=== PATIENT | female | born 1960 | race Two or more races ===

== ENCOUNTER 2019-12-29 11:05 | Inpatient (IN) ==
[~2019-12-29 11:05] MED LIST: Dexamethasone IV 4 MG/ML VIAL 1 ml VIAL IV SLOW PU ONE; Famotidine IV 10 MG/ML 2 ml VIAL (20 mg) IV ONE; Lactated Ringers 1000 ml BAG 1,000 ML IV SCH; Lidocaine 2% PF 5 ML VIAL ONE; Metoclopramide 5 MG/ML VIAL (10 mg) ONE; Midazolam 2 mg/2 ml VIAL 1 mg/ml 2 ml VIAL (2 mg) ONE; Ondansetron 4 mg VIAL 2 MG/ML 2 ml VIAL ONE; Propofol 10 MG/ML 20 ML BTL ONE; Rocuronium 50 mg VIAL 10 mg/ml 5 ml VIAL (50 mg) ONE; Succinylcholine 200 mg VIAL 20 mg/ml 10 ml VIAL (200 mg) ONE; fentaNYL 100 mcg/2 ml 50 MCG/ML VIAL ONE
[2019-12-29] MEDS ORDERED: Famotidine IV 10 MG/ML 2 ml VIAL (20 mg) ONE (11:29)
[2019-12-29] MEDS ORDERED: Heparin 5000 UNITS/ML VIAL(*) 1 ml vial ONE (11:29)
[2019-12-29] MEDS ORDERED: ceFAZolin 2 GM PREMIX in ORs 2 GM/50 ML BAG ONE (11:29)
[2019-12-29] MEDS ORDERED: Dexamethasone IV 4 MG/ML VIAL 1 ml VIAL ONE ×2 (11:29→17:22)
[2019-12-29] MEDS ORDERED: fentaNYL 100 mcg/2 ml 50 MCG/ML VIAL ONE ×2 (11:45→16:58)
[2019-12-29] MEDS ORDERED: Midazolam 5 mg/5 ml VIAL 1 mg/ml 5 ml VIAL (5 mg) ONE (16:25)
[2019-12-29] MEDS ORDERED: Bupivacaine 0.25% EPI 200,000 30 ML SDV ONE (16:36)
[2019-12-29] MEDS ORDERED: Propofol 10 MG/ML 20 ML BTL ONE (17:22)
[2019-12-29] MEDS ORDERED: Lidocaine 2% PF 5 ML VIAL ONE (17:22)
[2019-12-29] MEDS ORDERED: Ondansetron 4 mg VIAL 2 MG/ML 2 ml VIAL ONE (17:22)
[2019-12-29] MEDS ORDERED: DiMENhydriNATE IV 50 mg/ml 1 ml VIAL ONE (17:22)
[2019-12-29] MEDS ORDERED: Succinylcholine 200 mg VIAL 20 mg/ml 10 ml VIAL (200 mg) ONE (17:22)
[2019-12-29] MEDS ORDERED: HYDROmorphone 1 MG/1 ML SYRINGE ONE (17:26)
[2019-12-29] MEDS ORDERED: metroNIDAZOLE IV 500 MG/100ML 500 MG/100 ML BAG ONE (17:31)
[2019-12-29] MEDS ORDERED: DiMENhydriNATE IV 50 mg/ml 1 ml VIAL IV PUSH PRN (18:29)
[2019-12-29] MEDS ORDERED: Acetaminophen IV 1 GM/100ML 1,000 MG/100 ML VIAL IVPB ONE (18:29)
[2019-12-29] MEDS ORDERED: Naloxone 0.4 mg VIAL 0.4 mg/ml 1 ml VIAL IV PRN (18:29)
[2019-12-29] MEDS ORDERED: HYDROmorphone 1 MG/1 ML SYRINGE IV PRN (18:29)
[2019-12-29] MEDS ORDERED: metroNIDAZOLE IV 500 MG/100ML 500 MG/100 ML BAG IVPB ONE (18:33)
[2019-12-29] MEDS ORDERED: Acetaminophen IV 1 GM/100ML 100 ML ONE (19:32)
[2019-12-29] MEDS: Lactated Ringers 1000 ml BAG 1,000 ML IV SCH (21:05)
[2019-12-29] MEDS: Famotidine IV 10 MG/ML 2 ml VIAL (20 mg) IV SLOW PU SCH (21:19)
[2019-12-30] MEDS: ceFAZolin 2 GM PREMIX in ORs 2 GM/50 ML BAG IVPB SCH ×2 (00:42→09:33)
[2019-12-30] MEDS: metroNIDAZOLE IV 500 MG/100ML 500 MG/100 ML BAG IVPB SCH ×3 (01:35→17:40)
[2019-12-30 06:49] LABS: ABS Lymphocytes 1.3 10^3/ul (1.0-4.8); ABS Monocytes 0.5 10^3/ul (0-0.8); Hematocrit 32 % (35-47); Lymphocyte % 6.5 %; Mean Corpuscular HGB Conc 34 g/dL (31-36); Mean Corpuscular Hemoglobin 28 pg (27-31); Mean Corpuscular Volume 83 fL (80-97); Mean Platelet Volume 6.1 fL (7.4-10.4); Platelet Count 509 10^3/uL (150-450); Red Blood Count 3.88 10^6 /uL (3.70-4.87); Red Cell Distribution Width 13 % (10-15); White Blood Count 19.9 10^3/uL (3.5-10.8)
[2019-12-30 07:05] LABS: BUN/Creatinine Ratio 20.4 (8-20); Calcium 8.8 mg/dL (8.6-10.3); EGFR African American 138.9 (>60); EGFR Non-African American 114.8 (>60); Potassium 3.9 mmol/L (3.5-5.0)
[2019-12-30] MEDS: Famotidine IV 10 MG/ML 2 ml VIAL (20 mg) IV SLOW PU SCH ×2 (07:57→22:14)
[2019-12-30] MEDS: Lactated Ringers 1000 ml BAG 1,000 ML IV SCH ×2 (08:00→17:08)
[2019-12-30 09:15] LABS: C Reactive Protein 155.7 mg/L (<8.01)
[2019-12-30] MEDS: cefTRIAXone 1 gm/50 mL NS BAG 1 GM/50 ML BAG IVPB SCH (16:59)
[2019-12-30] MEDS: HYDROmorphone 1 MG/1 ML SYRINGE IV SLOW PU PRN (22:09)
[2019-12-31] MEDS: metroNIDAZOLE IV 500 MG/100ML 500 MG/100 ML BAG IVPB SCH ×3 (02:04→17:20)
[2019-12-31] MEDS: Lactated Ringers 1000 ml BAG 1,000 ML IV SCH ×3 (03:49→22:11)
[2019-12-31] MEDS ORDERED: Lactated Ringers 1000 ml BAG 500 ML IV ONE (05:05)
[2019-12-31 05:28] LABS: ABS Lymphocytes 1.1 10^3/ul (1.0-4.8); ABS Monocytes 0.5 10^3/ul (0-0.8); Eosinophil % 0.1 %; Hematocrit 34 % (35-47); Hemoglobin 11.3 g/dL (12.0-16.0); Lymphocyte % 7.1 %; Mean Corpuscular HGB Conc 33 g/dL (31-36); Mean Corpuscular Hemoglobin 28 pg (27-31); Mean Corpuscular Volume 84 fL (80-97); Mean Platelet Volume 6.2 fL (7.4-10.4); Platelet Count 602 10^3/uL (150-450); Red Blood Count 4.07 10^6 /uL (3.70-4.87); Red Cell Distribution Width 13 % (10-15)
[2019-12-31 06:00] LABS: BUN/Creatinine Ratio 20.7 (8-20); Calcium 8.9 mg/dL (8.6-10.3); EGFR African American 127.9 (>60); EGFR Non-African American 105.7 (>60); Potassium 3.9 mmol/L (3.5-5.0)
[2019-12-31] MEDS: Famotidine IV 10 MG/ML 2 ml VIAL (20 mg) IV SLOW PU SCH ×2 (10:10→20:53)
[2019-12-31] MEDS: cefTRIAXone 1 gm/50 mL NS BAG 1 GM/50 ML BAG IVPB SCH (16:38)
[2020-01-01] MEDS: metroNIDAZOLE IV 500 MG/100ML 500 MG/100 ML BAG IVPB SCH ×3 (01:05→17:45)
[2020-01-01] MEDS: Lactated Ringers 1000 ml BAG 1,000 ML IV SCH ×2 (07:27→16:42)
[2020-01-01] MEDS: Famotidine IV 10 MG/ML 2 ml VIAL (20 mg) IV SLOW PU SCH ×2 (10:04→21:06)
[2020-01-01] MEDS: cefTRIAXone 1 gm/50 mL NS BAG 1 GM/50 ML BAG IVPB SCH (16:43)
[2020-01-01] MEDS ORDERED: Dextrose 50% Syringe 50 ml 25 GM/50 ML SYRINGE IV PUSH PRN (16:51)
[2020-01-01] MEDS: Insulin LISPRO 100 units/ml(*) SUBCUT PRN (17:48)
[2020-01-02] MEDS: metroNIDAZOLE IV 500 MG/100ML 500 MG/100 ML BAG IVPB SCH ×3 (01:30→18:04)
[2020-01-02] MEDS: Lactated Ringers 1000 ml BAG 1,000 ML IV SCH ×3 (03:44→22:59)
[2020-01-02 05:31] LABS: ABS Lymphocytes 1.2 10^3/ul (1.0-4.8); ABS Monocytes 0.6 10^3/ul (0-0.8); Eosinophil % 0.1 %; Hematocrit 29 % (35-47); Hemoglobin 9.5 g/dL (12.0-16.0); Lymphocyte % 8.7 %; Mean Corpuscular HGB Conc 33 g/dL (31-36); Mean Corpuscular Hemoglobin 28 pg (27-31); Mean Corpuscular Volume 84 fL (80-97); Mean Platelet Volume 6.2 fL (7.4-10.4); Platelet Count 413 10^3/uL (150-450); Red Blood Count 3.45 10^6 /uL (3.70-4.87); Red Cell Distribution Width 13 % (10-15); White Blood Count 13.8 10^3/uL (3.5-10.8)
[2020-01-02 05:48] LABS: BUN/Creatinine Ratio 19.6 (8-20); EGFR African American 167.1 (>60); EGFR Non-African American 138.1 (>60); Potassium 3.3 mmol/L (3.5-5.0)
[2020-01-02] MEDS: Famotidine IV 10 MG/ML 2 ml VIAL (20 mg) IV SLOW PU SCH ×2 (10:38→20:51)
[2020-01-02] MEDS: Insulin LISPRO 100 units/ml(*) SUBCUT PRN ×2 (12:56→19:04)
[2020-01-02] MEDS: cefTRIAXone 1 gm/50 mL NS BAG 1 GM/50 ML BAG IVPB SCH (17:12)
[2020-01-02] MEDS: HYDROmorphone 0.5 MG/0.5 ML SYRINGE IV SLOW PU PRN (21:19)
[2020-01-03] MEDS: metroNIDAZOLE IV 500 MG/100ML 500 MG/100 ML BAG IVPB SCH ×3 (01:47→17:49)
[2020-01-03] MEDS: Insulin LISPRO 100 units/ml(*) SUBCUT PRN ×3 (06:23→18:12)
[2020-01-03] MEDS: Lactated Ringers 1000 ml BAG 1,000 ML IV SCH ×2 (08:09→17:49)
[2020-01-03] MEDS: Famotidine IV 10 MG/ML 2 ml VIAL (20 mg) IV SLOW PU SCH ×2 (09:13→21:53)
[2020-01-03] MEDS: cefTRIAXone 1 gm/50 mL NS BAG 1 GM/50 ML BAG IVPB SCH (17:04)
[2020-01-03] MEDS: HYDROmorphone 1 MG/1 ML SYRINGE IV SLOW PU PRN (19:43)
[2020-01-04] MEDS: Insulin LISPRO 100 units/ml(*) SUBCUT PRN (00:39)
[2020-01-04] MEDS: HYDROmorphone 0.5 MG/0.5 ML SYRINGE IV SLOW PU PRN (00:40)
[2020-01-04] MEDS: metroNIDAZOLE IV 500 MG/100ML 500 MG/100 ML BAG IVPB SCH ×3 (00:52→19:20)
[2020-01-04] MEDS: Lactated Ringers 1000 ml BAG 1,000 ML IV SCH ×3 (03:52→20:00)
[2020-01-04] MEDS ORDERED: NS 0.9% 1000 ml BAG 1,000 ML IV ONE ×2 (04:15→07:42)
[2020-01-04 05:08] LABS: ABS Basophils 0.1 10^3/ul (0-0.2); ABS Lymphocytes 0.5 10^3/ul (1.0-4.8); ABS Monocytes 1.1 10^3/ul (0-0.8); Eosinophil % 0.1 %; Hematocrit 34 % (35-47); Hemoglobin 10.9 g/dL (12.0-16.0); Lymphocyte % 2.1 %; Mean Corpuscular HGB Conc 32 g/dL (31-36); Mean Corpuscular Hemoglobin 27 pg (27-31); Mean Corpuscular Volume 85 fL (80-97); Mean Platelet Volume 6.6 fL (7.4-10.4); Platelet Count 421 10^3/uL (150-450); Red Blood Count 4.04 10^6 /uL (3.70-4.87); Red Cell Distribution Width 14 % (10-15); White Blood Count 24.4 10^3/uL (3.5-10.8)
[2020-01-04 05:10] LABS: CO2 Carbon Dioxide 20 mmol/L (22-32); Calcium 7.1 mg/dL (8.6-10.3); Chloride 104 mmol/L (101-111); Sodium 133 mmol/L (135-145)
[2020-01-04 05:14] LABS: Anion Gap 9 mmol/L (2-11)
[2020-01-04 05:16] LABS: BUN/Creatinine Ratio 9.7 (8-20); Blood Urea Nitrogen 6 mg/dL (6-24); C Reactive Protein 125.25 mg/L (<8.01); EGFR African American 118.4 (>60); EGFR Non-African American 97.9 (>60); Glucose 119 mg/dL (70-100)
[2020-01-04] MEDS ORDERED: Iodixanol (CONTRAST) 320 MG/ML 100 ML SDV IV ONE (06:22)
[2020-01-04] MEDS: Famotidine IV 10 MG/ML 2 ml VIAL (20 mg) IV SLOW PU SCH ×2 (07:56→20:00)
[2020-01-04] MEDS: HYDROmorphone 1 MG/1 ML SYRINGE IV SLOW PU PRN ×2 (09:36→16:41)
[2020-01-04] MEDS ORDERED: Bupivacaine 0.25% EPI 200,000 30 ML SDV ONE ×2 (10:06→15:53)
[2020-01-04] MEDS ORDERED: fentaNYL 100 mcg/2 ml 50 MCG/ML VIAL ONE ×3 (10:37→14:52)
[2020-01-04] MEDS ORDERED: Rocuronium 50 mg VIAL 10 mg/ml 5 ml VIAL (50 mg) ONE ×2 (10:39→14:36)
[2020-01-04] MEDS ORDERED: Etomidate 20 mg/10 ml 2 MG/ML 10 ml VIAL ONE (10:42)
[2020-01-04] MEDS ORDERED: Phenylephrine 40 mcg/mL 10mL (400mcg) SYRINGE ONE (10:45)
[2020-01-04] MEDS ORDERED: Glycopyrrolate IV 0.2 MG/ML 1 ML VIAL ONE (10:45)
[2020-01-04] MEDS ORDERED: Propofol 10 MG/ML 20 ML BTL ONE (10:47)
[2020-01-04] MEDS ORDERED: Phenylephrine IV 10 MG/ML 1 ml VIAL ONE (10:50)
[2020-01-04] MEDS: KCL 20 MEQ/100 ML IVPREMIX 20 MEQ/100 ML BAG IV SCH ×3 (11:27→19:19)
[2020-01-04] MEDS ORDERED: Lidocaine 1% MPF 5 ML VIAL ONE (12:39)
[2020-01-04] MEDS ORDERED: Ondansetron 4 mg VIAL 2 MG/ML 2 ml VIAL ONE (13:58)
[2020-01-04] MEDS ORDERED: Dexamethasone IV 4 MG/ML VIAL 1 ml VIAL ONE (13:58)
[2020-01-04] MEDS ORDERED: Acetaminophen IV 1 GM/100ML 1,000 MG/100 ML VIAL IVPB ONE (16:59)
[2020-01-04] MEDS: HYDROmorphone PCA 20 MG/20 ML PCA.SYRING PCA SCH (17:23)
[2020-01-04] MEDS: cefTRIAXone 1 gm/50 mL NS BAG 1 GM/50 ML BAG IVPB SCH (17:54)
[2020-01-04 18:43] LABS: Hematocrit 32 % (35-47); Hemoglobin 10.6 g/dL (12.0-16.0); Mean Corpuscular HGB Conc 33 g/dL (31-36); Mean Corpuscular Hemoglobin 28 pg (27-31); Mean Corpuscular Volume 83 fL (80-97); Mean Platelet Volume 6.4 fL (7.4-10.4); Platelet Count 468 10^3/uL (150-450); Red Blood Count 3.82 10^6 /uL (3.70-4.87); Red Cell Distribution Width 14 % (10-15); White Blood Count 23.1 10^3/uL (3.5-10.8)
[2020-01-04 18:56] LABS: BUN/Creatinine Ratio 15.6 (8-20); Calcium 7.2 mg/dL (8.6-10.3); EGFR African American 171.4 (>60); EGFR Non-African American 141.6 (>60); Phosphorus 3.2 mg/dL (2.5-5.0)
[2020-01-04] MEDS ORDERED: Magnesium Sulf 4 GM/100 ML IV 4,000 MG/100 ML BAG IVPB ONE (19:38)
[2020-01-04] MEDS ORDERED: Lactated Ringers 1000 ml BAG 1,000 ML IV SCH (23:00)
[2020-01-05] MEDS: metroNIDAZOLE IV 500 MG/100ML 500 MG/100 ML BAG IVPB SCH ×3 (00:26→18:25)
[2020-01-05] MEDS: Insulin LISPRO 100 units/ml(*) SUBCUT PRN ×3 (01:07→18:29)
[2020-01-05] MEDS: Lactated Ringers 1000 ml BAG 1,000 ML IV SCH ×2 (04:49→11:49)
[2020-01-05 05:18] LABS: ABS Lymphocytes 0.9 10^3/ul (1.0-4.8); ABS Monocytes 0.6 10^3/ul (0-0.8); Hematocrit 29 % (35-47); Hemoglobin 9.5 g/dL (12.0-16.0); Lymphocyte % 4.5 %; Mean Corpuscular HGB Conc 33 g/dL (31-36); Mean Corpuscular Hemoglobin 27 pg (27-31); Mean Corpuscular Volume 84 fL (80-97); Mean Platelet Volume 6.5 fL (7.4-10.4); Platelet Count 411 10^3/uL (150-450); Red Blood Count 3.47 10^6 /uL (3.70-4.87); Red Cell Distribution Width 14 % (10-15); White Blood Count 20.3 10^3/uL (3.5-10.8)
[2020-01-05 05:30] LABS: BUN/Creatinine Ratio 21.1 (8-20); Calcium 7.2 mg/dL (8.6-10.3); EGFR African American 208.3 (>60); EGFR Non-African American 172.2 (>60); Potassium 4.2 mmol/L (3.5-5.0)
[2020-01-05] MEDS: Famotidine IV 10 MG/ML 2 ml VIAL (20 mg) IV SLOW PU SCH ×2 (08:01→21:37)
[2020-01-05] MEDS: Enoxaparin 40 MG/0.4 ML SYR(*) SUBCUT SCH (09:30)
[2020-01-05] MEDS: cefTRIAXone 1 gm/50 mL NS BAG 1 GM/50 ML BAG IVPB SCH (17:27)
[2020-01-06] MEDS: Lactated Ringers 1000 ml BAG 1,000 ML IV SCH ×2 (00:59→12:40)
[2020-01-06] MEDS: metroNIDAZOLE IV 500 MG/100ML 500 MG/100 ML BAG IVPB SCH ×3 (01:08→18:25)
[2020-01-06] MEDS: Enoxaparin 40 MG/0.4 ML SYR(*) SUBCUT SCH (08:44)
[2020-01-06] MEDS: Famotidine IV 10 MG/ML 2 ml VIAL (20 mg) IV SLOW PU SCH ×2 (08:45→20:48)
[2020-01-06 10:17] LABS: Hematocrit 28 % (35-47); Hemoglobin 9.3 g/dL (12.0-16.0); Mean Corpuscular HGB Conc 33 g/dL (31-36); Mean Corpuscular Hemoglobin 27 pg (27-31); Mean Corpuscular Volume 83 fL (80-97); Mean Platelet Volume 6.3 fL (7.4-10.4); Platelet Count 527 10^3/uL (150-450); Red Blood Count 3.38 10^6 /uL (3.70-4.87); Red Cell Distribution Width 14 % (10-15); White Blood Count 24.5 10^3/uL (3.5-10.8)
[2020-01-06 10:34] LABS: Albumin 2.2 g/dL (3.2-5.2); BUN/Creatinine Ratio 20.5 (8-20); Calcium 7.7 mg/dL (8.6-10.3); EGFR African American 202.2 (>60); EGFR Non-African American 167.1 (>60); Globulin 2.2 g/dL (2-4); Magnesium 1.7 mg/dL (1.9-2.7); Phosphorus 2.1 mg/dL (2.5-5.0); Potassium 3.9 mmol/L (3.5-5.0); Total Bilirubin 0.3 mg/dL (0.2-1.0); Total Protein 4.4 g/dL (6.4-8.9)
[2020-01-06 10:57] LABS: ABS Basophils 0.1 10^3/ul (0-0.2); ABS Lymphocytes 1.3 10^3/ul (1.0-4.8); Lymphocyte % 5.3 %
[2020-01-06] MEDS: cefTRIAXone 1 gm/50 mL NS BAG 1 GM/50 ML BAG IVPB SCH (16:30)
[2020-01-06] MEDS: Insulin LISPRO 100 units/ml(*) SUBCUT PRN (23:50)
[2020-01-07] MEDS: Lactated Ringers 1000 ml BAG 1,000 ML IV SCH (00:26)
[2020-01-07] MEDS: metroNIDAZOLE IV 500 MG/100ML 500 MG/100 ML BAG IVPB SCH ×3 (01:06→17:50)
[2020-01-07] MEDS: Insulin LISPRO 100 units/ml(*) SUBCUT PRN ×2 (06:02→14:42)
[2020-01-07] MEDS ORDERED: Magnesium Sulfate 2 gm BAG 2 GM/50 ML BAG IVPB ONE ×2 (07:59→09:52)
[2020-01-07 08:28] LABS: Hematocrit 29 % (35-47); Hemoglobin 9.6 g/dL (12.0-16.0); Mean Corpuscular HGB Conc 33 g/dL (31-36); Mean Corpuscular Hemoglobin 27 pg (27-31); Mean Corpuscular Volume 83 fL (80-97); Mean Platelet Volume 6.4 fL (7.4-10.4); Platelet Count 544 10^3/uL (150-450); Red Blood Count 3.55 10^6 /uL (3.70-4.87); Red Cell Distribution Width 14 % (10-15); White Blood Count 19.4 10^3/uL (3.5-10.8)
[2020-01-07 08:39] LABS: BUN/Creatinine Ratio 10.3 (8-20); Calcium 7.4 mg/dL (8.6-10.3); EGFR African American 202.2 (>60); EGFR Non-African American 167.1 (>60); Potassium 3.8 mmol/L (3.5-5.0)
[2020-01-07] MEDS: Famotidine IV 10 MG/ML 2 ml VIAL (20 mg) IV SLOW PU SCH ×2 (08:47→20:38)
[2020-01-07] MEDS: Enoxaparin 40 MG/0.4 ML SYR(*) SUBCUT SCH (08:48)
[2020-01-07 09:07] LABS: ABS Basophils 0.1 10^3/ul (0-0.2); ABS Eosinophils 0.1 10^3/ul (0-0.6); ABS Lymphocytes 1.4 10^3/ul (1.0-4.8); ABS Monocytes 1.3 10^3/ul (0-0.8); Eosinophil % 0.4 %; Lymphocyte % 7.4 %; Nucleated Red Blood Cells % 0.1
[2020-01-07] MEDS: Potassium Acid Phos 500 mg TAB PO SCH ×4 (09:28→20:36)
[2020-01-07 09:37] LABS: Magnesium 1.4 mg/dL (1.9-2.7)
[2020-01-07 09:47] LABS: Phosphorus 2.4 mg/dL (2.5-5.0)
[2020-01-07] MEDS ORDERED: Potassium Chlor 20 meq TAB.ER PO ONE (10:39)
[2020-01-07] MEDS ORDERED: Potassium Chloride LIQUID 20 MEQ/15 ML LIQUID PO ONE (10:48)
[2020-01-07] MEDS: Furosemide 40 mg/4 ml IV VIAL IV SLOW PU SCH (11:01)
[2020-01-07] MEDS: cefTRIAXone 1 gm/50 mL NS BAG 1 GM/50 ML BAG IVPB SCH (17:05)
[2020-01-08] MEDS: metroNIDAZOLE IV 500 MG/100ML 500 MG/100 ML BAG IVPB SCH ×3 (01:34→18:30)
[2020-01-08] MEDS: Insulin LISPRO 100 units/ml(*) SUBCUT PRN ×4 (03:23→18:31)
[2020-01-08 05:18] LABS: Hematocrit 29 % (35-47); Hemoglobin 9.5 g/dL (12.0-16.0); Mean Corpuscular HGB Conc 33 g/dL (31-36); Mean Corpuscular Hemoglobin 27 pg (27-31); Mean Corpuscular Volume 83 fL (80-97); Mean Platelet Volume 6.5 fL (7.4-10.4); Platelet Count 519 10^3/uL (150-450); Red Blood Count 3.48 10^6 /uL (3.70-4.87); Red Cell Distribution Width 14 % (10-15); White Blood Count 14.9 10^3/uL (3.5-10.8)
[2020-01-08 05:40] LABS: Albumin 2.1 g/dL (3.2-5.2); Calcium 7.6 mg/dL (8.6-10.3); EGFR African American 196.3 (>60); EGFR Non-African American 162.3 (>60); Globulin 2.1 g/dL (2-4); HDL Cholesterol 14.5 mg/dL; Magnesium 1.7 mg/dL (1.9-2.7); Phosphorus 2.7 mg/dL (2.5-5.0); Potassium 3.6 mmol/L (3.5-5.0); Total Bilirubin 0.3 mg/dL (0.2-1.0); Total Protein 4.2 g/dL (6.4-8.9)
[2020-01-08 06:27] LABS: ABS Basophils 0.1 10^3/ul (0-0.2); ABS Eosinophils 0.1 10^3/ul (0-0.6); ABS Lymphocytes 1.4 10^3/ul (1.0-4.8); ABS Monocytes 1.1 10^3/ul (0-0.8); Eosinophil % 0.9 %; Lymphocyte % 9.1 %; Nucleated Red Blood Cells % 0.1
[2020-01-08] MEDS ORDERED: Magnesium Sulfate IV 3 GM in NS 0.9% 100 ml BAG 100 ML IVPB ONE (09:00)
[2020-01-08 10:12] LABS: C Reactive Protein 81.55 mg/L (<8.01)
[2020-01-08] MEDS: Furosemide 40 mg/4 ml IV VIAL IV SLOW PU SCH (10:34)
[2020-01-08] MEDS: Enoxaparin 40 MG/0.4 ML SYR(*) SUBCUT SCH (10:34)
[2020-01-08] MEDS: Potassium Acid Phos 500 mg TAB PO SCH (10:35)
[2020-01-08] MEDS: Famotidine IV 10 MG/ML 2 ml VIAL (20 mg) IV SLOW PU SCH ×2 (10:35→22:43)
[2020-01-08] MEDS: HYDROmorphone PCA 20 MG/20 ML PCA.SYRING PCA SCH (15:07)
[2020-01-08] MEDS: cefTRIAXone 1 gm/50 mL NS BAG 1 GM/50 ML BAG IVPB SCH (17:33)
[2020-01-09] MEDS: Insulin LISPRO 100 units/ml(*) SUBCUT PRN ×4 (00:12→17:29)
[2020-01-09] MEDS: metroNIDAZOLE IV 500 MG/100ML 500 MG/100 ML BAG IVPB SCH ×3 (01:44→18:00)
[2020-01-09 06:16] LABS: BUN/Creatinine Ratio 4.9 (8-20); Calcium 7.5 mg/dL (8.6-10.3); EGFR African American 190.8 (>60); EGFR Non-African American 157.7 (>60); Magnesium 1.6 mg/dL (1.9-2.7); Potassium 3.4 mmol/L (3.5-5.0)
[2020-01-09] MEDS: Furosemide 40 mg/4 ml IV VIAL IV SLOW PU SCH (09:44)
[2020-01-09] MEDS: Famotidine IV 10 MG/ML 2 ml VIAL (20 mg) IV SLOW PU SCH ×2 (09:46→22:04)
[2020-01-09] MEDS: Enoxaparin 40 MG/0.4 ML SYR(*) SUBCUT SCH (09:48)
[2020-01-09] MEDS ORDERED: Magnesium Sulfate 2 gm BAG 2 GM/50 ML BAG IVPB ONE (11:04)
[2020-01-09] MEDS ORDERED: KCL 20 MEQ/100 ML IVPREMIX 20 MEQ/100 ML BAG IV ONE (11:04)
[2020-01-09] MEDS: oxyCODONE/Acetamin 5/325 mg TAB PO PRN ×3 (12:47→23:22)
[2020-01-09] MEDS: cefTRIAXone 1 gm/50 mL NS BAG 1 GM/50 ML BAG IVPB SCH (17:12)
[2020-01-10] MEDS: Insulin LISPRO 100 units/ml(*) SUBCUT PRN ×2 (00:24→06:21)
[2020-01-10] MEDS: metroNIDAZOLE IV 500 MG/100ML 500 MG/100 ML BAG IVPB SCH ×3 (02:21→18:27)
[2020-01-10 05:32] LABS: BUN/Creatinine Ratio 9.3 (8-20); Calcium 7.5 mg/dL (8.6-10.3); EGFR African American 180.6 (>60); EGFR Non-African American 149.3 (>60); Magnesium 1.8 mg/dL (1.9-2.7); Potassium 3.5 mmol/L (3.5-5.0)
[2020-01-10] MEDS ORDERED: Magnesium Sulfate IV 1GM/100ML 1 GM/100 ML BAG IV ONE (09:32)
[2020-01-10] MEDS ORDERED: KCL 20 MEQ/100 ML IVPREMIX 20 MEQ/100 ML BAG IV ONE (09:32)
[2020-01-10] MEDS: Famotidine IV 10 MG/ML 2 ml VIAL (20 mg) IV SLOW PU SCH ×2 (09:58→22:33)
[2020-01-10] MEDS: Furosemide 40 mg/4 ml IV VIAL IV SLOW PU SCH (09:58)
[2020-01-10] MEDS: oxyCODONE/Acetamin 5/325 mg TAB PO PRN ×3 (09:58→22:37)
[2020-01-10] MEDS: Enoxaparin 40 MG/0.4 ML SYR(*) SUBCUT SCH (09:59)
[2020-01-10] MEDS: Insulin LISPRO 100 units/ml(*) SUBCUT SCH ×3 (12:25→22:35)
[2020-01-10] MEDS: HYDROmorphone 0.5 MG/0.5 ML SYRINGE IV SLOW PU PRN ×2 (13:29→18:27)
[2020-01-10] MEDS: cefTRIAXone 1 gm/50 mL NS BAG 1 GM/50 ML BAG IVPB SCH (17:22)
[2020-01-10] MEDS: DULoxetine DR 60 mg CAP PO SCH (22:37)
[2020-01-11] MEDS: metroNIDAZOLE IV 500 MG/100ML 500 MG/100 ML BAG IVPB SCH ×2 (01:20→09:36)
[2020-01-11] MEDS: oxyCODONE/Acetamin 5/325 mg TAB PO PRN ×3 (05:00→21:16)
[2020-01-11 06:15] LABS: BUN/Creatinine Ratio 21.6 (8-20); Calcium 8.8 mg/dL (8.6-10.3); EGFR African American 36.7 (>60); EGFR Non-African American 30.3 (>60); Magnesium 1.6 mg/dL (1.9-2.7); Potassium 4.3 mmol/L (3.5-5.0)
[2020-01-11] MEDS ORDERED: Furosemide 40 mg/4 ml IV VIAL IV SLOW PU SCH (09:00)
[2020-01-11] MEDS ORDERED: Magnesium Sulfate IV 3 GM in NS 0.9% 100 ml BAG 100 ML IVPB ONE (09:24)
[2020-01-11] MEDS: Famotidine IV 10 MG/ML 2 ml VIAL (20 mg) IV SLOW PU SCH ×2 (09:34→21:04)
[2020-01-11] MEDS: DULoxetine DR 60 mg CAP PO SCH ×2 (09:34→21:05)
[2020-01-11] MEDS: Insulin LISPRO 100 units/ml(*) SUBCUT SCH ×4 (09:35→21:05)
[2020-01-11] MEDS: Enoxaparin 40 MG/0.4 ML SYR(*) SUBCUT SCH (09:36)
[2020-01-11 09:39] LABS: C Reactive Protein 59.95 mg/L (<8.01)
[2020-01-11] MEDS: Amoxicillin/Clavul 500/125 TAB (Augmentin 500 mg tab) PO SCH ×2 (12:41→21:04)
[2020-01-12 05:53] LABS: ABS Basophils 0.1 10^3/ul (0-0.2); ABS Eosinophils 0.2 10^3/ul (0-0.6); ABS Lymphocytes 1.4 10^3/ul (1.0-4.8); ABS Monocytes 1.2 10^3/ul (0-0.8); Eosinophil % 1.9 %; Hematocrit 27 % (35-47); Hemoglobin 8.8 g/dL (12.0-16.0); Lymphocyte % 11.8 %; Mean Corpuscular HGB Conc 33 g/dL (31-36); Mean Corpuscular Hemoglobin 27 pg (27-31); Mean Corpuscular Volume 84 fL (80-97); Mean Platelet Volume 6.4 fL (7.4-10.4); Platelet Count 617 10^3/uL (150-450); Red Blood Count 3.21 10^6 /uL (3.70-4.87); Red Cell Distribution Width 15 % (10-15); White Blood Count 12.2 10^3/uL (3.5-10.8)
[2020-01-12 06:13] LABS: BUN/Creatinine Ratio 12.5 (8-20); Calcium 7.5 mg/dL (8.6-10.3); EGFR African American 196.3 (>60); EGFR Non-African American 162.3 (>60); Potassium 3.8 mmol/L (3.5-5.0)
[2020-01-12] MEDS: Insulin LISPRO 100 units/ml(*) SUBCUT SCH ×4 (09:35→21:12)
[2020-01-12] MEDS: Famotidine IV 10 MG/ML 2 ml VIAL (20 mg) IV SLOW PU SCH ×2 (09:44→21:16)
[2020-01-12] MEDS: DULoxetine DR 60 mg CAP PO SCH ×2 (09:44→21:16)
[2020-01-12] MEDS: Amoxicillin/Clavul 500/125 TAB (Augmentin 500 mg tab) PO SCH ×2 (10:00→21:16)
[2020-01-12] MEDS: oxyCODONE/Acetamin 5/325 mg TAB PO PRN ×2 (10:00→19:25)
[2020-01-12] MEDS: Enoxaparin 40 MG/0.4 ML SYR(*) SUBCUT SCH (10:01)
[2020-01-12] MEDS: HYDROmorphone 0.5 MG/0.5 ML SYRINGE IV SLOW PU PRN (12:27)
[2020-01-13] MEDS: oxyCODONE/Acetamin 5/325 mg TAB PO PRN (06:42)
[2020-01-13 07:51] VITALS: BP 106/61
[2020-01-13] MEDS: DULoxetine DR 60 mg CAP PO SCH (09:57)
[2020-01-13] MEDS: Amoxicillin/Clavul 500/125 TAB (Augmentin 500 mg tab) PO SCH (09:57)
[2020-01-13] MEDS: Insulin LISPRO 100 units/ml(*) SUBCUT SCH ×2 (09:58→12:06)
[2020-01-13] MEDS: Famotidine IV 10 MG/ML 2 ml VIAL (20 mg) IV SLOW PU SCH (09:58)
[2020-01-13] MEDS: Enoxaparin 40 MG/0.4 ML SYR(*) SUBCUT SCH (09:59)
== END 2020-01-13 15:05 | disposition home or self-care (01) | DRG 222 ==
LOC: OR 11:05 → SSU 20:36 → ICU 01-04 08:55 → SSU 01-05 09:56
PROVIDERS: ADMIT Physician Assistant Surgical; ATTEND Internal Medicine